=== PATIENT | female | born 1955 | race Two or more races ===

== ENCOUNTER 2023-07-20 18:16 | Emergency (ER) | payer OTHER ==
[~2023-07-20] VITALS: Ht 152.4 cm; Wt 64.9 kg
== END 2023-07-20 19:17 | disposition home or self-care (01) ==
LOC: ER 18:16
DX: M79.661 Pain in right lower leg (principal); E11.9 Type 2 diabetes mellitus without complications; Z95.0 Presence of cardiac pacemaker; Z88.8 Allergy status to other drugs, medicaments and biological substances; Z88.5 Allergy status to narcotic agent
CPT/HCPCS: 93971; 99283-25

== ENCOUNTER 2024-02-22 10:01 | Day surgery (SDC) | payer OTHER ==
[~2024-02-22] VITALS: Ht 154.9 cm; Wt 65.8 kg
[~2024-02-22 10:01] MED LIST: ASPI81CH PO; Crestor40 MG PO; ERGO400 PO; METF500 PO; TUMS500 MG PO
[2024-02-22] MEDS ORDERED: CALCIUM 600 MG1 EA17 PO (10:29)
[2024-02-22 10:30] VITALS: BP 182/99
[2024-02-22] MEDS ORDERED: NS 0 ML IV ONE (11:54)
[2024-02-22] MEDS ORDERED: Heparin Sodium 1000 Units/ML 10ML MDV ONE (11:54)
[2024-02-22] MEDS ORDERED: CeFAZolin Sodium 1000 mg Vial ONE (11:54)
[2024-02-22] MEDS ORDERED: NS 1,000 ML IV ONE ×2 (11:55)
[2024-02-22] MEDS ORDERED: NS 100 ML IV ONE (11:56)
[2024-02-22] MEDS ORDERED: NS 250 ML IV ONE (12:21)
[2024-02-22] MEDS ORDERED: Midazolam HCl 1MG / ML 2ML Vial ONE (12:39)
[2024-02-22] MEDS ORDERED: FentaNYL Citrate 50 MCG/ML 2 ML Injection ONE (12:39)
[2024-02-22 14:37] VITALS: BP 148/127
[2024-02-22 14:45] VITALS: BP 149/87
--- NOTE | 2024-02-22 14:49 | NUR ---
Pt returns to recovery room up in recliner. Pt vss upon arrival to recovery room. Site wnl, no oozing or swelling at this time. Ice applied to site per dr. catherine. Pt. provided with food tray and water. Family updated.
[2024-02-22 15:01] VITALS: BP 160/144
[2024-02-22 15:18] VITALS: BP 116/94
[2024-02-22 15:32] VITALS: BP 141/85
--- NOTE | 2024-02-22 15:48 | NUR ---
chest xray completed, dr. reza notified.
--- NOTE | 2024-02-22 15:48 | NUR ---
Pt. sitting up in recliner with ice in place, family at bedside. pt vss. site unchanged from intitial assessment
--- NOTE | 2024-02-22 16:00 | NUR ---
dr. reza in to see pt and discuss plan of care. pt okay to be dcd home. vss remain stable. pt nephew to drive pt home. discharge instructions reviewed in detail, no further questions. iv removed cathter intact.
== END 2024-02-22 16:34 | disposition home or self-care (01) ==
LOC: MHTC 10:01
DX: Z45.018 Encounter for adjustment and management of other part of cardiac pacemaker (principal); Z45.010 Encounter for checking and testing of cardiac pacemaker pulse generator [battery]; R55 Syncope and collapse; E11.9 Type 2 diabetes mellitus without complications; E78.5 Hyperlipidemia, unspecified; Z79.82 Long term (current) use of aspirin; Z79.84 Long term (current) use of oral hypoglycemic drugs; Z79.899 Other long term (current) drug therapy; Z88.5 Allergy status to narcotic agent; Z88.8 Allergy status to other drugs, medicaments and biological substances
CPT/HCPCS: 33210; 33228; 71045; 76937; 99152; 99153; C1785; C1894; J0690; J1644; J2250; J3010; J7030; J7040; J7050